=== PATIENT | female | born 1990 | race African-American/Black ===

== ENCOUNTER 2017-01-06 08:18 | Emergency (ER) | payer OTHER ==
--- NOTE | 2017-01-06 10:26 | PROVIDER DOCUMENTATION ---
HPI-Abdominal Pain/GI Problem - General Chief Complaint: Constipation Stated Complaint: 10 WEEKS PREG/CONSTIPATION Time Seen by Provider: 01/06/17 10:13 Source: patient Allergies/Adverse Reactions: Patient Allergies Allergy/AdvReac Type Severity Reaction Status Date / Time Penicillins Allergy ITCHING Verified 01/06/17 08:29 Home Medications: Home Medication List Medication Instructions Recorded Confirmed Last Taken Type Glycerin [Adult Glycerin] 1 each RC TID #10 supp.rect 01/06/17 Unknown Rx Na Phos,M-B/Na Phos,Di-Ba [Fleet 133 ml [place] HS PRN PRN #3 enema 01/06/17 Unknown Rx Enema] Polyethylene Glycol 3350 [Miralax] 255 gm PO DAILY PRN PRN #7 powder 01/06/17 Unknown Rx - History of Present Illness-ABD Nature of Presenting Problems: This pt, who is , approximately 11 wks , presents today c complaints of constipation. She reports that 3 weeks ago she was having this problem and she called her OFFICE TECHNOLOGY INSTRUCTOR and was told to take an enema. She said that this worked but two weeks ago her symptoms returned. She states that she is passing gas and very small stools only. No n/v. No abdominal distention. No other issues or complaints. Abdominal Pain Onset Location: reports: generalized abdomen Quality of Pain: reports: cramping, fullness Severity in ED: reports: mild Onset/Duration: reports: other (see hpi) Timing: reports: still present Modifying Factors: improves with: eating Associated Symptoms: reports: constipation Last BM: other (see hpi) Dark Stools Present?: reports: none noticed Rectal Bleeding: reports: none Rectal Pain: reports: none Emesis Description: reports: none Bruising or Bleeding Gums?: No Similar Symptoms Previously?: Yes Recently seen or treated by another doctor?: No Review of Systems - Adult - REVIEW OF SYSTEMS - ADULT Constitutional: reports: no symptoms reported. denies: chills, fever Eyes: reports: no symptoms reported. denies: discharge, dry eyes Ears, Nose, Mouth & Throat: reports: no symptoms reported. denies: ear discharge, ear pain Cardiovascular: reports: no symptoms reported. denies: chest pain, edema Respiratory: reports: no symptoms reported. denies: chronic cough, cough Gastrointestinal: reports: see HPI, constipation. denies: hematemesis, diarrhea , nausea, vomiting Genitourinary: reports: no symptoms reported. denies: dysuria, discharge Musculoskeletal: reports: no symptoms reported. denies: bone pain, back pain Integumentary: reports: no symptoms reported. denies: hives, hair loss Neurological: reports: no symptoms reported. denies: ataxia, dizziness/vertigo Psychiatric: reports: no symptoms reported. denies: anxiety, anti-depressant use Endocrine: reports: no symptoms reported Hematologic/Lymphatic: reports: no symptoms reported Allergic/Immunologic: reports: no symptoms reported All Other Systems: Reviewed and Negative Past History - Adult - PAST MEDICAL HISTORY-ADULT Review of Records: reports: Old Records Reviewed, Nursing Assessment Review, Medications Reviewed, Social history reviewed & non-contributory. Major Childhood Illnesses: reports: denies history Cardiovascular: reports: denies history Respiratory: reports: denies history Gastrointestinal: reports: denies history Obstetrical/Gynecological: reports: denies history Genitourinary: reports: denies history Musculoskeletal: reports: denies history Neurological: reports: denies history Psychiatric: reports: denies history Endocrine/Immune: reports: Diabetes Other Conditions: reports: denies history - PRIOR SURGERIES/PROCEDURES Surgical/Procedure History: reports: other (tubal , ruptured ovarian cyst) - IMMUNIZATION STATUS Childhood Immunizations: See Nurse Assessment Flu Vaccine: See Nurse Assessment - FAMILY HISTORY Family History: reviewed, not pertinent Physical Exam-General - PHYSICAL EXAM-ADULT Initial Vital Signs Reviewed: Yes - CONSTITUTIONAL General Appearance: appears well, alert, no apparent distress - EYES Eyes: PERRL/EOMI, pink conjunctivae - HEAD, EARS, NOSE, MOUTH & THROAT HENMT: normocephalic/atraumatic, moist mucous membranes, normal ENT inspection - NECK Neck: non-tender, full range of motion, supple - RESPIRATORY Respiratory: chest non-tender, lungs clear, normal breath sounds, no pleuratic chest pain, no respiratory distress, no accessory muscle use - GASTROINTESTINAL (ABDOMEN) Abdominal Exam: non tender, soft, no organomegaly, no pulsatile mass, abnormal bowel sounds (diminished), tenderness (mild, generalized; pt stated "not really pain, just uncomfortable"). negative: abdominal bruit, distended, guarding, rigid, rebound, McBurney's point tenderness, Way's sign - MUSCULOSKELETAL Back Exam: normal inspection, no CVA tenderness, no vertebral tenderness Extremity: normal range of motion, non-tender, normal gait, normal inspection - SKIN Integumentary: normal color, normal turgor, warm/dry - NEUROLOGIC Neurologic: grossly normal, no motor/sensory deficits - PSYCHIATRIC Psych/Mental Status: normal mood/affect, normal thought content, normal thought process, oriented x 3 Progress - PLAN OF CARE/RESULTS Progress/Plan/Lab Results: Vital Signs Temp Pulse Resp BP Pulse Ox 01/06/17 08:24 98.4 F 85 16 111/67 99 Penicillins Allergy (Verified 01/06/17 08:29) ITCHING No Home Medications 01/06/17 Advised her to take medications, add water and fiber to her daily diet and f/u c her OFFICE TECHNOLOGY INSTRUCTOR this week as scheduled. She voiced understanding and is in agreement c this plan. Departure - Departure Time of Disposition Order: 10:41 DIAGNOSIS: Constipation during in first trimester Disposition: HOME 01 Certified Medical Emergency: Urgent Condition: Good Additional Instructions: Take medication as prescribed. Eat a high fiber diet and drink plenty of water. Follow up with your OFFICE TECHNOLOGY INSTRUCTOR as scheduled. As we discussed, return to the ER for new or worsening symptoms. ED Follow Up Instructions: You have been treated by a care provider in the Emergency Department. These instructions are being provided to you so you can have an understanding of how to care for yourself upon discharge. Upon discharge from the Emergency Department, you are responsible for making arrangements for follow-up care by a physician of your choice. Take all prescribed medications as directed. Return to the Emergency Department immediately for any new or worsening symptoms. You may call the Physician Referral phone number at [phone] to obtain a list of Physicians who are taking new patients. Prescriptions: Glycerin [Adult Glycerin] 1 each RC TID #10 supp.rect Na Phos,M-B/Na Phos,Di-Ba [Fleet Enema] 133 ml WI HS PRN PRN #3 enema PRN Reason: Constipation Polyethylene Glycol 3350 [Miralax] 255 gm PO DAILY PRN PRN #7 powder PRN Reason: Constipation Referrals: Danny Root MD [Primary Care Provider] - Attestation - Physician/ SILVINA Attestation Patient care was provided by Advanced Practice Provider:: Yes Advanced Practice Provider:: Kishore Thomas Advanced Practice Provider documentation review:: The Mid-level provider documentation, treatment plan and medical decision making was reviewed by the physician who agrees with all treatment and medical decision making by the MLP.
[2017-01-06 11:01] VITALS: BP 109/67
== END 2017-01-06 11:00 | disposition home or self-care (01) ==
LOC: P.ED 08:18
DX: O26.891 Other specified pregnancy related conditions, first trimester (principal); K59.00 Constipation, unspecified; R10.84 Generalized abdominal pain; Z3A.11 11 weeks gestation of pregnancy
CPT/HCPCS: 82948; 99282

== ENCOUNTER 2017-01-15 22:48 | Emergency (ER) ==
--- NOTE | 2017-01-15 23:19 | PROVIDER DOCUMENTATION ---
HPI-Female /OB/Breast - General Source: reports: patient - History of Present Illness-Female /OB Does patient report she is ?: Yes Location of complaint: reports: vaginal Quality of Pain: reports: none Onset/Duration: reports: this evening Vaginal Symptoms: denies: discharge, itching, passing clots/tissue Vaginal Bleeding Amount: Spotting Urinary Symptoms: reports: no symptoms <Frankie Morrison - Last Filed: 01/16/17 00:50> <Valentin Locke - Last Filed: 01/16/17 00:57> - General Chief Complaint: Female Stated Complaint: 12 WKS PREG-BLEEDING Time Seen by Provider: 01/15/17 23:04 Allergies/Adverse Reactions: Patient Allergies Allergy/AdvReac Type Severity Reaction Status Date / Time Penicillins Allergy ITCHING Verified 01/06/17 08:29 Home Medications: Home Medication List Medication Instructions Recorded Confirmed Last Taken Type Glycerin [Adult Glycerin] 1 each RC TID #10 supp.rect 01/06/17 Unknown Rx Na Phos,M-B/Na Phos,Di-Ba [Fleet 133 ml [place] HS PRN PRN #3 enema 01/06/17 Unknown Rx Enema] Polyethylene Glycol 3350 [Miralax] 255 gm PO DAILY PRN PRN #7 powder 01/06/17 Unknown Rx - History of Present Illness-Female /OB Nature of Presenting Problem: Pt is a 26 y/o AAF who is 12 weeks and says when she went to the bathroom she wiped and there was blood on the paper all 4 wipes. Pt denies abdominal cramps and pain. Pt states in 2012 she lost one from a tubal and had to remove her left tube. Pt states this has been difficult with spotting, dehydration and one time was told she was aborting. ( Frankie Morrison) Review of Systems - Adult - REVIEW OF SYSTEMS - ADULT Constitutional: denies: chills, fever Eyes: reports: no symptoms reported Ears, Nose, Mouth & Throat: reports: no symptoms reported Cardiovascular: denies: chest pain, edema Respiratory: reports: no symptoms reported Gastrointestinal: reports: no symptoms reported Genitourinary: reports: hematuria. denies: dysuria, urinary retention Musculoskeletal: reports: no symptoms reported Integumentary: reports: no symptoms reported Neurological: reports: no symptoms reported Psychiatric: reports: no symptoms reported Endocrine: reports: no symptoms reported Hematologic/Lymphatic: reports: no symptoms reported Allergic/Immunologic: reports: no symptoms reported All Other Systems: Reviewed and Negative <Frankie Morrison - Last Filed: 01/16/17 00:50> Past History - Adult - PAST MEDICAL HISTORY-ADULT Review of Records: reports: Old Records Reviewed, Nursing Assessment Review, Medications Reviewed Major Childhood Illnesses: reports: denies history Cardiovascular: reports: denies history Respiratory: reports: denies history Gastrointestinal: reports: denies history Obstetrical/Gynecological: reports: denies history Genitourinary: reports: denies history Musculoskeletal: reports: denies history Neurological: reports: denies history Psychiatric: reports: denies history Endocrine/Immune: reports: Diabetes Other Conditions: reports: denies history - PRIOR SURGERIES/PROCEDURES Surgical/Procedure History: reports: other (tubal , ruptured ovarian cyst) - IMMUNIZATION STATUS Childhood Immunizations: See Nurse Assessment Flu Vaccine: See Nurse Assessment - FAMILY HISTORY Family History: reviewed, not pertinent <Frankie Morrison - Last Filed: 01/16/17 00:50> Physical Exam-General - PHYSICAL EXAM-ADULT Initial Vital Signs Reviewed: Yes - CONSTITUTIONAL General Appearance: appears well, alert, no apparent distress - EYES Eyes: PERRL/EOMI, pink conjunctivae - HEAD, EARS, NOSE, MOUTH & THROAT HENMT: moist mucous membranes, normal ENT inspection, TMs normal, pharynx normal - NECK Neck: non-tender, full range of motion, supple, normal inspection - RESPIRATORY Respiratory: lungs clear, normal breath sounds, no pleuratic chest pain, no respiratory distress, no accessory muscle use - CARDIOVASCULAR Cardiovascular: normal peripheral pulses, regular rate, rhythm - GASTROINTESTINAL (ABDOMEN) Abdominal Exam: normal bowel sounds, non tender, soft - GENITOURINARY Female Genitalia/Pelvic Exam: other (cervic was closed. Old and new blood in vault). negative: active bleeding - MUSCULOSKELETAL Back Exam: no CVA tenderness, no vertebral tenderness Extremity: normal range of motion, non-tender, normal gait, normal inspection - SKIN Integumentary: normal color, normal turgor, warm/dry - NEUROLOGIC Neurologic: grossly normal, no motor/sensory deficits - PSYCHIATRIC Psych/Mental Status: normal mood/affect, normal thought content, normal thought process, oriented x 3 <Frankie Morrison - Last Filed: 01/16/17 00:50> Progress - ULTRASOUND (By Radiology) 1 US Study: Transvaginal Impression: Normal (Viable IUP, 12w0d, normal FHR 144bpm cx closed) <Frankie Morrison - Last Filed: 01/16/17 00:50> <Valetnin Locke - Last Filed: 01/16/17 00:57> - PSYCHIATRIC Psych patient progress: Laboratory Tests 01/15/17 01/15/17 01/15/17 23:20 23:20 23:47 WBC 9.97 RBC 3.42 L Hgb 10.4 L Hct 31.1 L MCV 90.9 MCH 30.4 MCHC 33.4 RDW Std Deviation 14.6 H Plt Count 344 MPV 10.4 Immature Gran % (Auto) 0.8 H Neut % (Auto) 64.3 Lymph % (Auto) 26.2 Blaine % (Auto) 6.0 Eos % (Auto) 2.4 Baso % (Auto) 0.3 Immature Gran # (Auto) 0.08 H Neut # (Auto) 6.41 Lymph # (Auto) 2.61 Blaine # (Auto) 0.60 H Eos # (Auto) 0.24 Baso # (Auto) 0.03 Ser , Semi-Qnt 45615.0 Urine Source CLEAN CATCH Urine Color STRAW Urine Clarity CLEAR Urine pH 7.0 Ur Specific [place] 1.010 Urine Protein NEGATIVE Urine Ketones NEGATIVE Urine Blood 1+ A Urine Nitrite NEGATIVE Urine Bilirubin NEGATIVE Urine Urobilinogen NORMAL Urine Microscopic RBC <10 Urine WBC NEGATIVE Urine Microscopic WBC <10 Ur Epithelial Cells <10 Urine Bacteria 2+ Urine Glucose NEGATIVE Orders Category Date Time Status Pelvic set up DIRECTED Care 01/15/17 23:13 Active US OBS COMPLETE < 14 WKS [US] Stat Exams 01/15/17 23:15 Taken CBC WITH DIFF [HEME] Stat Lab 01/15/17 23:20 Completed QUANT TEST Stat Lab 01/15/17 23:[address] W/POSS RFLX CULT [URINALYSIS] Stat Lab 01/15/17 23:47 Completed URINE CULTURE [RM] Routine Lab 01/16/17 00:41 Ordered Vital Signs Temp Pulse Resp BP Pulse Ox 01/15/17 23:01 97 F L 95 H 20 122/79 99 Penicillins Allergy (Verified 01/06/17 08:29) ITCHING Glycerin [Adult Glycerin] 1 each RC TID #10 supp.rect 01/06/17 Na Phos,M-B/Na Phos,Di-Ba [Fleet Enema] 133 ml [place] HS PRN PRN #3 enema 01/06/17 Polyethylene Glycol 3350 [Miralax] 255 gm PO DAILY PRN PRN #7 powder 01/06/17 Laboratory 01/15/17 01/15/17 01/15/17 23:47 23:20 23:20 WBC 9.97 RBC 3.42 L Hgb 10.4 L Hct 31.1 L MCV 90.9 MCH 30.4 MCHC 33.4 RDW Std Deviation 14.6 H Plt Count 344 MPV 10.4 Immature Gran % (Auto) 0.8 H Neut % (Auto) 64.3 Lymph % (Auto) 26.2 Blaine % (Auto) 6.0 Eos % (Auto) 2.4 Baso % (Auto) 0.3 Immature Gran # (Auto) 0.08 H Neut # (Auto) 6.41 Lymph # (Auto) 2.61 Blaine # (Auto) 0.60 H Eos # (Auto) 0.24 Baso # (Auto) 0.03 Ser , Semi-Qnt 47729.0 Urine Source CLEAN CATCH Urine Color STRAW Urine Clarity CLEAR Urine pH 7.0 Ur Specific [place] 1.010 Urine Protein NEGATIVE Urine Ketones NEGATIVE Urine Blood 1+ A Urine Nitrite NEGATIVE Urine Bilirubin NEGATIVE Urine Urobilinogen NORMAL Urine Microscopic RBC <10 Urine WBC NEGATIVE Urine Microscopic WBC <10 Ur Epithelial Cells <10 Urine Bacteria 2+ Urine Glucose NEGATIVE (Frankie Morrison) Departure <Frankie Morrison - Last Filed: 01/16/17 00:50> - Departure Time of Disposition Order: 00:54 Certified Medical Emergency: Emergent <Valentin Locke - Last Filed: 01/16/17 00:57> - Departure DIAGNOSIS: Vaginal bleeding in patient at less than 20 weeks gestation Disposition: HOME 01 Condition: Fair Additional Instructions: Bed rest except for bathroom and kitchen. No lifting over 10 lbs, nor any sex until cleared by CUSTOMER SERVICE DISPATCHER Referrals: Danny Root MD [Primary Care Provider] - Attestation - Scribe Verification/Attestation Scribe:: Frankie Morrison Acting as Scribe for:: Valentin Locke Scribe documention review:: This chart was documented by a scribe and accurately reflects the service the provider performed and the decisions made by the provider. <Frankie Morrison - Last Filed: 01/16/17 00:50> Physician Attestation
[2017-01-15 23:26] LABS: MANUAL DIFF NEEDED? NO
[2017-01-15 23:30] LABS: BASO% 0.3 % (0.0-0.8); EOS# 0.24 X1000 (0.0-0.7); EOS% 2.4 % (0.0-10.0); HEMATOCRIT 31.1 % (37.0-47.0); HEMOGLOBIN 10.4 g/dL (12.0-16.0); IMM GRAN# 0.08 X1000 (0.0-0.04); IMM GRAN% 0.8 % (0.0-0.5); LYMPH# 2.61 X1000 (1.2-3.4); LYMPH% 26.2 % (20.5-51.1); MCH 30.4 PG (27-31); MCHC 33.4 g/dL (33-37); MCV 90.9 FL (81-99); MPV 10.4 FL (7.4-10.4); NEUT% 64.3 % (42.2-75.2); PLT 344 X1000 (130-400); RBC 3.42 XMIL (4.2-5.4)
[2017-01-16 00:03] LABS: URINE SOURCE CLEAN CATCH
[2017-01-16 00:22] LABS: BILIRUBIN URINE NEGATIVE (NEGATIVE); BLOOD URINE 1+ (NEGATIVE); CLARITY CLEAR (CLEAR); COLOR STRAW; GLUCOSE URINE NEGATIVE (NEGATIVE); LEUKOCYTES URINE NEGATIVE (NEGATIVE); NITRITE URINE NEGATIVE (NEGATIVE); PROTEIN URINE NEGATIVE (NEGATIVE); UROBILINOGEN URINE NORMAL
[2017-01-16 00:40] LABS: URINE RBC <10 /HPF (<10); URINE WBC <10 /HPF (<10)
[2017-01-16 00:41] LABS: URINE CULTURE PL NEEDED? YES; URINE EPITHELIAL CELLS <10 /HPF (<10)
[2017-01-16 01:13] VITALS: BP 133/84
--- NOTE | 2017-01-16 08:26 | Diag Imaging Result Document ---
PROCEDURE NAME: US OBS COMPLETE < 14 WKS - 01/15/2017 ULTRASOUND OB COMPLETE: COMPARISON: 11/29/2016. FINDINGS: There are a couple of large right ovarian cysts. These measure 5 and 1.7 cm respectively. The left ovary is normal. The right ovary measures 7.4 x 5.4 x 4.5 cm. The left ovary measures 3.2 x 2.6 x 2.4 cm. There is a single intrauterine . Estimated gestational age is 12 weeks 0 days +/-7 days. Estimated delivery date is 07/31/2017. heart rate is 144 beats per minute. Maternal uterus is normal. Normal gestational sac and amniotic fluid. The cervix is closed. There is movement present. IMPRESSIONS: 1. Large right ovarian cyst. 2. Living intrauterine .
== END 2017-01-16 01:13 | disposition home or self-care (01) ==
LOC: P.ED 22:48
DX: O46.91 Antepartum hemorrhage, unspecified, first trimester (principal); Z3A.12 12 weeks gestation of pregnancy
CPT/HCPCS: 76801; 81001; 84702; 85025; 87088